=== PATIENT | female | born 1955 | race Caucasian/White ===

== ENCOUNTER → 2016-11-17 | Outpatient (CLI) | payer BC ==
[~2016-11-17] MED LIST: AMOX1TAB10 PO; ASPI325T32 PO; HYDR-3498 PO; METO25TA7 PO; PANT40TA4 PO; PREG50CA PO
--- NOTE | 2016-11-17 12:22 | RADRPT ---
PROCEDURE: XR left knee. CLINICAL INDICATION: Knee pain TECHNIQUE: AP weightbearing, PA weightbearing, lateral weightbearing and sunrise views are availab le for review. COMPARISON: None available FINDINGS: There is mild to moderate osteoarthrosis involving the medial tibial femoral compartment and mild os teoarthrosis involving the patellofemoral compartment. This is associated with joint space narrowing , subchondral sclerosis and osteophytosis. There is otherwise normal mineralization, architecture and alignment. No fractures are identified. No osseous lesions are identified. The soft tissues are unremarkable. IMPRESSION: Mild to moderate osteoarthrosis involving the medial tibial femoral compartment and mild osteoarthro sis involving the patellofemoral compartment. RPTAT: HGDB .Shaji Farmer MD, MD Date Time Electronically viewed and signed by .Shaji Farmer MD, on 11/17/2016 12:21 .B/
--- NOTE | 2016-11-20 16:58 | RADRPT ---
PROCEDURE: Limited x-ray of both lower extremities. CLINICAL INDICATION: Bilateral leg pain. TECHNIQUE: Single frontal view of both lower extremities was obtained from the hips to the calves. COMPARISON: None. FINDINGS: This is a limited study due to patient motion. There are mild degenerative changes of both knees. The hips are grossly normal. IMPRESSION: 1. Mild degenerative changes of both knees. RPTAT: QQ .Erasto Jain MD, MD Date Time Electronically viewed and signed by .Erasto Jain MD, on 11/20/2016 16:58 .R/
== END | disposition home or self-care (01) ==
LOC: HKI 09:43
PROVIDERS: ATTEND Orthopaedic Surgery
DX: M25.562 Pain in left knee (principal); M17.12 Unilateral primary osteoarthritis, left knee
CPT/HCPCS: 73564; 77073; G0463

== ENCOUNTER 2016-11-21 07:39 | Inpatient (IN) | payer BC ==
[2016-11-20 12:02] VITALS: BMI 30.0
[2016-11-21] VITALS (33 sets, daily range): BP systolic 134–175; BP diastolic 67–87; PULSE 52–96; RESP 9–32; Ht 159.4 cm; Wt 83.2 kg
[~2016-11-21] VITALS: Ht 159.4 cm; Wt 83.2 kg
[~2016-11-21 07:39] MED LIST changes: -ASPI325T32 PO; -HYDR-3498 PO; -PANT40TA4 PO; -PREG50CA PO
--- NOTE | 2016-11-21 07:52 | PREOPHP ---
DATE OF ADMISSION: 11/21/2016 TYPE OF REPORT: Preop medical clearance. HISTORY: This is a 61-year-old female who has advanced osteoarthritis of the left knee. She is maciel eduled to have left total knee replacement at [facility] by Dr. Holman on 11/22/19 17. PAST MEDICAL HISTORY: History of SVT, status postmenopausal syndrome. She had pneumonia about 2007 , intrinsic asthma diagnosed in 06/2014. PAST SURGICAL HISTORY: She has had a left knee torn meniscus repair by Dr. Andrea Oscar on 01/02/2013. sections x 2. Ovarian wedge resection bilaterally when she was in her teens. She had a pa rtial hysterectomy in 1989 and then had a bilateral salpingo-oophorectomy back in 04/1999. In 1991, she had a bunionectomy. SOCIAL HISTORY: She is and has 2 children who are grown. She is a social drinker, no use o f tobacco. REVIEW OF SYSTEMS: Negative. Of note, she did see Dr. Manriquez for preoperative clearance in that she has history of SVT and she henry s had some arrhythmia issues and essentially of note is that the patient cannot tolerate Bystolic du e to low heart rate and control of her blood pressure. She could not tolerate Cardizem and he sugge sted a weight loss program, decreased salt and being placed on Toprol XL 25 mg a day. That seems to be working. On EKG, it showed questionable inferior wall myocardial infarction and she had a stress test which was done on 11/09/2016, a nuclear stress test basically completely normal. Clinic respo nse is nonischemic. EKG was not ischemic. Basically a normal nuclear study. This was done by Dr. Manriquez. MEDICATIONS: Basically: 1. Metoprolol XL 25 mg a day. 2. Albuterol on as-needed basis. These are her only medications at the present time. FAMILY HISTORY: Noncontributory. PHYSICAL EXAMINATION: VITAL SIGNS: Blood pressure 140/80, weight 183 pounds. She is 5 feet 5 inches. Her BMI is 30.4. Her heart rate is 60. HEENT: Throat is clear. NECK: Supple, no carotid bruits, no thyromegaly, no adenopathy. LUNGS: Clear to percussion and auscultation. HEART: Regular rhythm, no murmurs, rubs, or gallops. ABDOMEN: Soft and nontender, no hepatosplenomegaly. EXTREMITIES: Without cyanosis, clubbing, or edema. NEUROLOGICAL: Intact. Awake, alert and oriented x4. FINAL IMPRESSION: Advanced osteoarthritis of the left knee. PLAN: The patient is scheduled to have a left total knee replacement by Dr. Holman on 11/21/2016. The patient is in my opinion medically cleared for surgery assuming the chest x-ray and lab work are normal. As mention, she is already cleared for cardiac as she had a normal nuclear stress test on 11/09/[address] Fred Yi MD dictating Pre-Operative for Dr. Destin Holman MD Dictated By: DESTIN HOLMAN MD EZ/NTS Conf#: [id number] DID#: [id number]
[2016-11-21] MEDS ORDERED: CELECOXIB 400 MG PO X1 DOSE PO ONE (08:00)
[2016-11-21] MEDS ORDERED: ONDANSETRON 4 MG INJ IV ONE (08:00)
[2016-11-21] MEDS ORDERED: CEFAZOLIN 2GM/50 ML (PMX) 50 ML X1 BEFORE INCISION IVPB ONE (08:00)
[2016-11-21] MEDS ORDERED: oxyCODONE (CR) 10 MG TAB [oxyCONTIN] X1 DOSE PO ONE (08:00)
[2016-11-21] MEDS ORDERED: PREGABALIN 300 MG PO X1 PO ONE (08:00)
[2016-11-21] MEDS ORDERED: PAIN COCKTAIL-CEFUROXIME IRR ONE ×7 (08:00)
[2016-11-21] MEDS ORDERED: traMADOL 50 MG TAB X 1 DOSE PO ONE (08:00)
[2016-11-21] MEDS ORDERED: TRANEXAMIC ACID in SOD CHLORIDE 0.9% 100 ML FOR INTRAOP IVPB ONE (08:00)
[2016-11-21] MEDS ORDERED: LACTATED RINGER'S 1,000 ML IV SCH (08:00)
[2016-11-21] MEDS ORDERED: TRANEXAMIC ACID in SOD CHLORIDE 0.9% 100 ML ON CALL TO OR IV ONE (08:00)
[2016-11-21] MEDS ORDERED: NEOSTIGMINE 3 MG/3 ML SYRINGE ONE (08:29)
[2016-11-21] MEDS ORDERED: PROPOFOL 20 ML ONE (08:29)
[2016-11-21] MEDS ORDERED: MIDAZOLAM 1 MG/ML 2 ML INJ ONE (08:30)
[2016-11-21] MEDS ORDERED: ONDANSETRON 4 MG INJ ONE (08:30)
[2016-11-21] MEDS ORDERED: ROCURONIUM 50 MG INJ ONE (08:30)
[2016-11-21] MEDS ORDERED: FENTAnyl 50 MCG/ML VIAL ONE (08:30)
[2016-11-21] MEDS ORDERED: CEFAZOLIN 1 GM INJ ONE (08:30)
[2016-11-21] MEDS ORDERED: DEXAMETHASONE 4 MG/ML 1 ML INJ ONE (08:30)
[2016-11-21] MEDS ORDERED: ETOMIDATE 20 MG INJ ONE (08:30)
[2016-11-21] MEDS ORDERED: GLYCOPYRROLATE 0.4 MG INJ ONE (08:30)
[2016-11-21] MEDS ORDERED: PROPOFOL 100 ML ONE (08:30)
[2016-11-21] MEDS ORDERED: EXPAREL NOTE (BUPIVICAINE LIPOSOMAL) XX SCH (10:00)
[2016-11-21] MEDS ORDERED: BUPIVACAINE LIPOSOME/PF 266 MG/20 ML VIAL INFIL ONE (10:00)
--- NOTE | 2016-11-21 10:02 | HPN ---
Date/Time of Note Date/Time of Note DATE: 11/21/16 TIME: 10:02 Interval H&P Admission Note Pt. seen H&P reviewed: No system changes No change from H&P on 11/14/16 by DESTIN Pruitt MD Nov 21, 2016 10:02
[2016-11-21] MEDS ORDERED: BACITRACIN 50000 UNITS INJ ONE ×2 (10:10→10:15)
[2016-11-21] MEDS ORDERED: VANCOMYCIN 1 GM INJ ONE (10:12)
[2016-11-21] MEDS ORDERED: POLYMYXIN B 500000 UNIT INJ ONE (10:12)
[2016-11-21] MEDS ORDERED: SODIUM CL BACTERIOSTATIC 30 ML INJ ONE (10:12)
[2016-11-21] MEDS ORDERED: SUGAMMADEX SODIUM 200 MG/2 ML VIAL IV ONE (12:21)
[2016-11-21] MEDS ORDERED: MEPERIDINE 25 MG INJ IV PRN (12:30)
[2016-11-21] MEDS ORDERED: DIPHENHYDRAMINE 50 MG INJ IV PRN (12:30)
[2016-11-21] MEDS ORDERED: hydrALAzine 20 MG INJ IV PRN (12:30)
[2016-11-21] MEDS ORDERED: FENTAnyl 50 MCG/ML VIAL IV PRN ×3 (12:30)
[2016-11-21] MEDS ORDERED: ONDANSETRON 4 MG INJ IV PRN ×2 (12:30→13:00)
[2016-11-21] MEDS ORDERED: OXYCODONE/ACETAMINOPHEN (5/325) TAB PO PRN ×2 (12:30)
[2016-11-21] MEDS ORDERED: MIDAZOLAM 1 MG/ML 2 ML INJ IV PRN (12:30)
[2016-11-21] MEDS ORDERED: LABETALOL HCL 20MG INJ IV PRN (12:30)
[2016-11-21] MEDS ORDERED: EPHEDrine SULFATE 50 MG/5 ML SYG IV PRN (12:30)
[2016-11-21] MEDS ORDERED: HYDROmorphONE (0.2 MG/ML) 10ML SYG IV PRN ×3 (12:30)
[2016-11-21] MEDS ORDERED: TRIMETHOBENZAMIDE 100 MG/ML VIAL IM PRN (12:30)
[2016-11-21] MEDS: LACTATED RINGER'S 1,000 ML IV SCH ×2 (12:54→20:43)
--- NOTE | 2016-11-21 12:58 | OPR ---
Date/Time of Note Date/Time of Note DATE: 11/21/16 TIME: 12:57 Operative Report Free Text/Dictation # [id number] Procedure Date: Nov 21, 2016 Preoperative Diagnosis Left Knee OA Postoperative Diagnosis Same Operation Performed Left TKA Surgeon: DESTIN HOLMAN MD resident programs assistant: FE HUBBARD PA-C Anesthesia: general, spinal Anesthesiologist: Valentin Walker M.D. Tourniquet Time: 62 minutes Estimated Blood Loss: 50 - 100 ml's Specimens Bone and soft tissue Tubes/Drains Hemovac x 1 Complications: None Pt Condition Post Procedure: stable Disposition: PACU DESTIN HOLMAN MD Nov 21, 2016 12:58
[2016-11-21] MEDS ORDERED: HYDROmorphONE 1 MG/ML SYG IV PRN (13:00)
[2016-11-21] MEDS ORDERED: MAGNESIUM HYDROXIDE 30ML CUP PO PRN (13:00)
[2016-11-21] MEDS ORDERED: BISACODYL 10 MG SUPP PR PRN (13:00)
[2016-11-21] MEDS ORDERED: DIPHENHYDRAMINE 25 MG CAP PO PRN (13:00)
[2016-11-21] MEDS ORDERED: NA PHOSPHATE/BIPHOS 133 ML ENEMA PR PRN (13:00)
[2016-11-21] MEDS ORDERED: NACL 0.9% 3 ML SYG IV SCH (13:00)
[2016-11-21] MEDS ORDERED: ASPIRIN (EC) 325 MG TAB PO ONE (13:00)
--- NOTE | 2016-11-21 13:23 | OPR ---
DATE OF OPERATION: 11/21/2016 PREOPERATIVE DIAGNOSIS: Left knee osteoarthritis. POSTOPERATIVE DIAGNOSIS: Left knee osteoarthritis. OPERATION PERFORMED: Left total knee arthroplasty. SURGEON: Destin Perez MD SUPERINTENDENT RADIO COMMUNICATIONS: JEN Royal COMPONENTS USED: DePuy Attune size 5 femoral component, size 5 tibial baseplate, 5 mm polyethylene insert, and a 35 patellar button. ANESTHESIA: Spinal plus general endotracheal intubation plus periarticular injection. ANESTHESIOLOGIST: Dr. Walker. TOURNIQUET TIME: 62 minutes. ESTIMATED BLOOD LOSS: 50 mL. INTRAVENOUS FLUIDS: Two liters crystalloid. SPECIMENS: Bone and soft tissue. DRAINS: Hemovac x1. COMPLICATIONS: None. DISPOSITION: Patient tolerated the procedure well and was taken to the recovery room in [facility]. INDICATIONS: The patient is a 61-year-old woman who has had progressive worsening pain in the left knee with radiographic evidence of osteoarthritis. She has failed nonsurgical means of treatment to control her pain including activity modifications, pain medications and ambulatory assist devices. Despite these measures, she has had worsening pain and I felt she would benefit from a total knee a rthroplasty. The risks, benefits, and alternatives of the procedure were explained in detail to the patient. I e xplained the risks of the surgery to include but not be limited to, bleeding and possible need for b lood transfusion; infection; pain; stiffness; neurovascular injury with possible numbness, weakness, and/or paralysis anywhere from the knee down to the toes; fracture; instability; dislocation; wear and/or loosening of the prosthesis and possible need for future revision; blood clots; pulmonary emb olism; and anesthetic complications such as heart attack, stroke, GI bleed, pneumonia, and/or . Ample time was allowed for the patient to ask questions, all of which were addressed and answered. The patient understood the risks involved and wished to proceed. Informed consent was signed prior to the procedure. PROCEDURE: The patient's left knee was initialed with a marking pen in the preoperative area to delilah ntify the correct operative site. The patient was brought to the operating room and transferred fro [facility] to the operating table where a spinal anesthetic was administered. The patien t was then anesthetized and intubated. A Vera catheter was placed. A timeout was performed to con firm that the left leg was the correct operative site. The patient was given 2 g of Ancef within on e hour prior to the procedure. A tourniquet was placed on the operative proximal thigh. The operat najma knee and lower extremity were prepped and draped in the usual sterile fashion. The operative lo wer extremity was elevated and exsanguinated with an Esmarch tourniquet. The proximal thigh tourniq uet was inflated to 300 mmHg. The knee was flexed. A midline incision was made and carried down through the subcutaneous tissue a nd fat with sharp dissection. Limited medial and lateral flaps were raised. A median parapatellar arthrotomy approach was performed. Synovial fluid was normal in color and consistency. The patella was everted and the knee flexed. There were severe tricompartmental osteoarthritic changes noted. A medial release was performed at the joint line to the midcoronal plane. The ACL and PCL and remnan ts of the menisci were excised. The stepped drill was used to open up the femoral canal which was i rrigated and sucked dry. The intramedullary guide coco was passed up the femur, and the distal cutti ng block was pinned into place for a 5 degree valgus cut, taking 10 mm of bone off distally. The osc illating saw was used to make the cut. The tibia was subluxed anteriorly. The tibial cutoff jig was placed over the center of the talus di stally and over the junction of the medial and middle third of the tibial tubercle proximally. The g uide was pinned into place and the oscillating saw was used to make the cut. The tibia was sized. The extension gap was checked and accommodated a 5 mm spacer block with the knee in full extension. There was no varus or valgus instability. At this point, the femur was sized with the posterior referencing guide. Two holes were drilled in 3 degrees of external rotation. The two holes were in line with the transepicondylar axis, perpendi cular to [place]'s line, and in line with the tibial cutoff jig brought up with the knee flexed 90 degrees and tensed with 2 lamina spreaders, suggesting the femoral rotation was correct. The four- in-one cutting block was pinned into place. The anterior and posterior cuts and chamfer cuts were m jose f with the oscillating saw. The flexion gap was checked and accommodated the 5 mm spacer block at 90 degrees. There was no varus or valgus instability, suggesting the flexion and extension gaps we re now equal. The central box was cut out on the femur. The tibia was drilled and punched in proper rotation. Tri al components were placed into position with a trial insert. The patella was cut from 24 mm down to 15 mm and sized. Three holes were drilled and the trial button placed in position. With all the t rials now in place, the knee was taken through range of motion and came to full extension as evidenc ed by the fact that with the foot on my abdomen and axial loading, there was no tendency for the kne e to flex. The knee was able to be flexed to 125 degrees with good patellar tracking with no latera l tilt or subluxation. At this point, I was satisfied with the overall range of motion, stability, and patellar tracking. The trials were removed. The real components were opened. Two bags of cement were mixed, one with and one without premixed antibiotic. The knee was irrigated with antibiotic saline and sucked dry. Once the cement was in a doughy stage, the real components were cemented into place. The knee was held in full extension, and the patellar component was held with a patellar clamp. All excess cemen t was removed with curettes. As the cement was hardening, the synovial/capsular layer was infiltrat ed with a mixture of 150 mg of 0.5% Bupivacaine, 8 mg of Duramorph, 300 mcg of epinephrine, 30 mg of Toradol, 100 mcg of clonidine, 750 mg of cefuroxime and 86 mL of normal saline, followed by an inje ction of 266 mg of liposomal Bupivacaine. A Hemovac drain was placed in the deep portion of the wound and brought out the anterolateral thigh. Once the cement was completely hardened, the trial liner was removed, and the real insert was open ed. The tourniquet was let down, and there was good hemostasis. The knee was then irrigated with a mixture of betadine/saline and then antibiotic saline with pulsatile lavage. The real insert was impacted into the tibia and reduced onto to the femur. The arthrotomy was closed with a few interrupted #1 Ethibond in a [id number] fashion, and then closed in a watertight fashion with a running #2 Stratafix suture. Knee flexion was checked against gravity and came to 125 degrees. The subcutaneous layer was irrigated and closed with 2-0 Statafix , and then 3-0 Vicryl and then ramya on the skin. The wound was covered with an occlusive dressin g, and secured with cast padding and a bias dressing. The drain was secured with 3-0 nylon. The sponge and needle counts were correct at the end of the case. The patient was then awakened, ex tubated, and taken to the recovery room in stable condition. Dictated By: DESTIN CARPENTER/BRYSON Conf#: [id number] DID#: [id number]
[2016-11-21] MEDS: CEFAZOLIN 2 GM/50 ML (PMX) 50 ML IVPB SCH ×2 (13:29→20:47)
--- NOTE | 2016-11-21 13:34 | PN ---
Date/Time of Note Date/Time of Note DATE: 11/21/16 TIME: 13:33 Assessment/Plan Lines/Catheters IV Catheter Type (from Nrsg): Peripheral IV Assessment/Plan Assessment/Plan Stable in PACU, s/p left TKA -continue Ancef -pain meds as needed -ASA/SCDs -OOB with PT -check AM labs -monitor drain -d/c muller in AM XR of the left knee is pending at this time Subjective 24 Hr Interval Summary Stable in PACU. Denies pain. Moving all extremities. Exam/Review of Systems Vital Signs Vitals Vital Signs Date Time Temp Pulse Resp B/P Pulse Ox O2 Delivery O2 Flow Rate FiO2 11/21/16 13:12 68 10 146/75 97 Nasal Cannula 3.0 11/21/16 13:04 98.4 Exam Free Text/Dictation Hemovac: minimal Dressing dry Incision clean, dry, and intact without redness or drainage Thigh soft 5/5 Quadriceps, Tibialis Anterior, EHL, Gastroc, Soleus, Peroneals Normal sensation Palpable DT/PT, CR <2 sec No distal edema FE HUBBARD PA-C Nov 21, 2016 13:34
[2016-11-21 14:01] LABS: HEMATOCRIT 38.6 % (37.0-47.0)
--- NOTE | 2016-11-21 14:01 | CONS ---
DATE OF ADMISSION: 11/21/2016 DATE OF CONSULTATION: TYPE OF CONSULTATION: Postop medical. REFERRING PHYSICIAN: Dr. Perez. Thank you very much for allowing me to evaluate this 61-year-old female who just underwent left knee replacement. HISTORICAL EVENTS: As you well know, this patient has had progressive disabling pain involving her left knee, and for this, underwent the above-mentioned surgery. In recovery, she is comfortable wit hout cough, wheezing, shortness of breath, nausea, vomiting, or abdominal pain. PAST MEDICAL HISTORY: Includes: 1. A torn left knee meniscus, undergoing surgery in 12/2012. 2. C-sections x2. 3. History or ovarian wedge resection bilaterally in her teens. 4. Partial hysterectomy and bilateral salpingo-oophorectomy. 5. Bunionectomy 6. History of SVT, pneumonia and intrinsic asthma. SOCIAL HISTORY: She is and has 2 children. Social drinker. Nuclear stress test study done in November of 2006 that was normal. MEDICATIONS: 1. Metoprolol XL 25. 2. Albuterol p.r.n. FAMILY HISTORY: Noncontributory. PHYSICAL EXAMINATION: GENERAL: [place] female in no acute distress. VITAL SIGNS: BP 122/80, pulse 70, respirations are 20, she was afebrile. EYES: Extraocular muscles were full. NOSE, MOUTH, AND THROAT: Normal. NECK: Supple. There was no jugular venous distention, thyroid enlargement or adenopathy. Carotids 2+. LUNGS: Clear. HEART: Rhythm regular, no murmur. No third or fourth sound. ABDOMEN: Nontender. Liver and spleen were not palpable. No masses or tenderness were noted. EXTREMITIES: No edema. NEUROLOGIC: No lateralizing motor weakness. IMPRESSION: 1. Stable postop left knee replacement. 2. History of supraventricular tachycardia. Will observe for the same. 3. History of asthma. We will use albuterol as needed. 4. Will evaluate daily for signs and symptoms of thromboembolic disease despite appropriate deep ve nous thrombosis prophylaxis. Dictated By: JONY MULLEN/BRYSON Conf#: [id number] DID#: [id number]
[2016-11-21 14:22] LABS: CALCIUM 9.1 mg/dl (8.4-10.2); CREATININE 0.73 mg/dl (0.44-1.00); POTASSIUM 3.9 mmol/L (3.5-5.1)
--- NOTE | 2016-11-21 14:37 | RADRPT ---
PROCEDURE: Left knee x-ray CLINICAL INDICATION: PACU Post Op TECHNIQUE: Two views of the left knee were obtained. COMPARISON: Left knee 11/20/2016. FINDINGS: The patient is status post total knee replacement . There are postsurgical changes in the subcutane ous soft tissues. There is a surgical drain in place. There is normal mineralization. No acute fracture or dislocation is seen. There is a joint space e ffusion. IMPRESSION: 1. Postsurgical changes of the knee status post knee replacement. 2. Joint space effusion is noted. RPTAT:AAJJ Physician Tricia Date Time Electronically viewed and signed by Physician Tricia on 11/21/2016 14:37 /
[2016-11-21] MEDS ORDERED: TRANEXAMIC ACID 830 MG in SOD CHLORIDE 0.9% 100 ML IVPB ONE ×2 (16:00→19:00)
[2016-11-21] MEDS: traMADol 50 MG TAB PO SCH ×2 (18:21→23:35)
[2016-11-21] MEDS: PANTOPRAZOLE (EC) 40 MG TAB PO SCH (18:21)
[2016-11-21] MEDS: DOCUSATE SODIUM 100 MG CAP PO SCH (20:43)
[2016-11-21] MEDS: PREGABALIN 50 MG CAP PO SCH (20:43)
[2016-11-21] MEDS: HYDROCODONE/APAP (5/325) TAB PO PRN (20:43)
[2016-11-21] MEDS: METOPROLOL (XL) 25 MG TAB PO SCH (21:50)
[2016-11-22 00:22] VITALS: BP 117/63; RESP 18
[2016-11-22] MEDS: HYDROCODONE/APAP (5/325) TAB PO PRN ×4 (03:22→18:50)
[2016-11-22] MEDS: PANTOPRAZOLE (EC) 40 MG TAB PO SCH ×2 (05:16→17:27)
[2016-11-22] MEDS: traMADol 50 MG TAB PO SCH ×3 (05:17→17:27)
[2016-11-22] MEDS: CEFAZOLIN 2 GM/50 ML (PMX) 50 ML IVPB SCH (05:17)
[2016-11-22] MEDS: LACTATED RINGER'S 1,000 ML IV SCH ×3 (05:17→20:54)
[2016-11-22 06:33] LABS: HEMATOCRIT 36.3 % (37.0-47.0); HEMOGLOBIN 12.1 g/dl (12.0-16.0)
[2016-11-22 07:06] LABS: CALCIUM 9.2 mg/dl (8.4-10.2); CREATININE 0.74 mg/dl (0.44-1.00); POTASSIUM 4.5 mmol/L (3.5-5.1)
[2016-11-22 07:17] VITALS: BP 120/63; RESP 19
--- NOTE | 2016-11-22 08:15 | CONS ---
Date/Time of Note Date/Time of Note DATE: 11/22/16 TIME: 08:13 Assessment/Plan Assessment/Plan Additional Assessment/Plan 1.Doing well post op left knee replacement. 2.Hx SVT, asx 3.Hx asthma, asx 4.Labs rev Consultation Date/Type/Reason Admit Date/Time Nov 21, 2016 at 07:39 Initial Consult Date Detailed Summary Respiratory: No cough, No shortness of breath Cardiovascular: No chest pain Gastrointestinal: no complaints Genitourinary: other (muller in place) Musculoskeletal: bone/joint pain (mild left knee pain) Exam/Review of Systems Vital Signs Vitals Vital Signs Date Time Temp Pulse Resp B/P Pulse Ox O2 Delivery O2 Flow Rate FiO2 11/22/16 07:17 97.5 52 19 120/63 100 11/21/16 20:10 Nasal Cannula 2.0 Intake and Output 11/21/16 11/21/16 11/22/16 15:00 23:00 07:00 Intake Total 2500 ml 716.6 ml 800 ml Output Total 1190 ml 460 ml 2500 ml Balance 1310 ml 256.6 ml -1700 ml Exam Neck: No jvd Respiratory: clear to auscultation Cardiovascular: regular rate and rhythm Gastrointestinal: soft Extremities: No edema (and no calf tend) Results Result Diagram: 11/22/16 0450 11/22/16 0450 Results 24 hrs Laboratory Tests Test 11/21/16 13:50 11/22/16 04:50 Hemoglobin 13.0 12.1 Hematocrit 38.6 36.3 L Sodium Level 144 142 Potassium Level 3.9 4.5 Chloride Level 112 H 108 Carbon Dioxide Level 24 26 Anion Gap 12 13 Blood Urea Nitrogen 20 15 Creatinine 0.73 0.74 Glucose Level 138 128 Calcium Level 9.1 9.2 Medications Medications Current Medications Miscellaneous Information 1 ea 1 ea NOTE XX ; Start 11/21/16 at 10:00; Stop at 09:59 Lactated Ringer's (Lr) 1,000 ml @ 125 mls/hr Q8H IV Last administered on 05:17; Admin Dose 125 MLS/HR; Start 11/21/16 at 12:54 Tramadol HCl (Ultram) 50 mg Q6 PO Last administered on 11/22/16 05:17; Admin Dose 50 MG; Start 11/21/16 at 18:00; Stop 11/24/16 at 17:59 Acetaminophen/ Hydrocodone Bitart ([place] (5/325)) 1 tab Q4H PRN PO PAIN LEVEL 1 -3; Start 11/21/16 at 13:00 Acetaminophen/ Hydrocodone Bitart ([place] (5/325)) 2 tab Q4H PRN PO PAIN LEVEL 4 -7 Last administered on 11/22/16 03:22; Admin Dose 2 TAB; Start 11/21/16 at 13: 00 Hydromorphone HCl (Dilaudid) 1 mg Q3H PRN IV PAIN LEVEL 8-10 Last administered on 11/21/16 16:05; Admin Dose 1 MG; Start 11/21/16 at 13:00 Ondansetron HCl (Zofran Inj) 4 mg Q6H PRN IV NAUSEA AND/OR VOMITING; Start at 13:00 Bisacodyl (Dulcolax Supp) 10 mg Q12H PRN [place] CONSTIPATION; Start 11/21/16 at 13: 00 Magnesium Hydroxide (Milk Of Mag) 30 ml BID PRN PO CONSTIPATION; Start at 13:00 Sodium Biphosphate/ Sodium Phosphate (Fleet Enema) 133 ml DAILY PRN [place] CONSTIPATION; Start 11/21/16 at 13:00 Docusate Sodium (Colace) 100 mg BID PO Last administered on 11/21/16 20:43; Admin Dose 100 MG; Start 11/21/16 at 21:00 Diphenhydramine HCl (Benadryl) 25 mg Q6H PRN PO PRURITUS; Start 11/21/16 at 13: 00 Aspirin (Ecotrin) 325 mg BID PO ; Start 11/22/16 at 09:00 Pantoprazole (Protonix Tab) 40 mg BID@06,18 PO Last administered on 11/22/16 05:16; Admin Dose 40 MG; Start 11/21/16 at 18:00 Pregabalin (Lyrica) 50 mg BID PO Last administered on 11/21/16 20:43; Admin Dose 50 MG; Start 11/21/16 at 21:00 Metoprolol Succinate (Toprol Xl) 25 mg HS PO Last administered on 11/21/16 21: 50; Admin Dose 25 MG; Start 11/21/16 at 21:35 JONY CHAPARRO MD Nov 22, 2016 08:15
[2016-11-22] MEDS: DOCUSATE SODIUM 100 MG CAP PO SCH ×2 (08:20→21:49)
[2016-11-22] MEDS: ASPIRIN (EC) 325 MG TAB PO SCH ×2 (08:20→21:48)
[2016-11-22] MEDS: PREGABALIN 50 MG CAP PO SCH ×2 (08:20→21:48)
--- NOTE | 2016-11-22 08:48 | PN ---
Date/Time of Note Date/Time of Note DATE: 11/22/16 TIME: 08:47 Assessment/Plan Lines/Catheters IV Catheter Type (from Nrsg): Peripheral IV Vera in Place (from Nrsg): Yes Assessment/Plan Assessment/Plan Stable POD #1, s/p left TKA -d/c abx -pain meds as needed -ASA/SCDs -OOB with PT -check AM labs -drain removed -d/c planning. Will plan to go home upon discharge Subjective 24 Hr Interval Summary No acute overnight events. Denies significant pain. Did not start PT yet. VSS, afebrile. Will plan to go home upon discharge. Exam/Review of Systems Vital Signs Vitals Vital Signs Date Time Temp Pulse Resp B/P Pulse Ox O2 Delivery O2 Flow Rate FiO2 11/22/16 07:17 97.5 52 19 120/63 100 11/21/16 20:10 Nasal Cannula 2.0 Intake and Output 11/21/16 11/21/16 11/22/16 15:00 23:00 07:00 Intake Total 2500 ml 716.6 ml 800 ml Output Total 1190 ml 460 ml 2500 ml Balance 1310 ml 256.6 ml -1700 ml Exam Free Text/Dictation Hemovac: 100cc Dressing dry Incision clean, dry, and intact without redness or drainage Thigh soft 5/5 Quadriceps, Tibialis Anterior, EHL, Gastroc, Soleus, Peroneals Normal sensation Palpable DT/PT, CR <2 sec No distal edema Results Result Diagram: 11/22/1644911/22/16 045 FE HUBBARD PA-C Nov 22, 2016 08:48
[2016-11-22] MEDS ORDERED: METOPROLOL (XL) 25 MG TAB PO SCH (09:00)
[2016-11-22 10:01] LABS: ADD UMIC YES; URINE BILIRUBIN (Dip) NEGATIVE (NEGATIVE); URINE BLOOD (Dip) TRACE (NEGATIVE); URINE COLOR LT. YELLOW (YELLOW); URINE GLUCOSE (Dip) NEGATIVE (NEGATIVE); URINE KETONES (Dip) NEGATIVE (NEGATIVE); URINE LEUKOCYTE ESTERASE (Dip) NEGATIVE (NEGATIVE); URINE NITRITE (Dip) NEGATIVE (NEGATIVE); URINE TOTAL PROTEIN (Dip) NEGATIVE (NEGATIVE); URINE UROBILINOGEN (Dip) 0.2 E.U./dL (0.1-1.0)
[2016-11-22 10:06] LABS: URINE RBCS NONE SEEN /HPF (0)
--- NOTE | 2016-11-22 15:01 | PDOCDIS ---
Discharge Instructions DIAGNOSIS Discharge Diagnosis: s/p left TKA CONDITION Patient Condition: Good HOME CARE INSTRUCTIONS: Diet Instructions: Regular ACTIVITY: Activity Restrictions: Slowly Increase Activity Rest between Activity Avoid heavy lifting Do not operate Machinery Do not operate Power Tool Avoid Heavy Housework Keep Limb Elevated Bathing Restrictions: Shower FOLLOW UP/APPOINTMENTS Appointments follow up in the office on 12/01/16 OTHER ORDERS: Other Orders: S/P TKA Physical Therapy: Three times per week at home x 2 weeks Daily in Rehab/SNF WB STATUS: WBAT 1. Strengthening exercises for both upper and un-operated lower extremities. 2. Gait training with front wheeled walker 3. Active range of motion exercises to operative knee. 4. When not working on knee range of motion exercises, distal towel roll under operative ankle/distal calf to promote full extension. 5. DO NOT PUT ANYTHING BEHIND OPERATIVE KNEE!!! 6. Quadriceps and hamstring strengthening. 7. May switch to cane in contra lateral hand 6 weeks after surgery. 8. Physical Therapy can open case if nursing is not available. 9. Use Ice Machine as instructed from date of surgery while at rest 3X/day. 10. Patient requires mobile SCDs to reduce risk of developing DVT following TKA. Patient will use the mobile SCDs for 30 days postoperatively. Bathing assistance by home health aide twice weekly if Medicare patient. Occupational Therapy: Evaluation for assistive devices and ADL training. Wound Care: Keep incision dry & covered with Tegaderm until first visit with Dr. Perez Anticoagulation Orders: Enteric Coated Aspirin 325 mg po bid x 6 weeks from date of surgery Follow-up:Call for an appointment with Dr. Perez in 1 week after discharged from hospital at DME Orders: ALEX, 3-in-1 Commode, Polar ice machine, Mobile SCDs FE HUBBARD PA-C Nov 22, 2016 15:01
[2016-11-22] MEDS ORDERED: PANT40TA4 PO (15:08)
[2016-11-22] MEDS ORDERED: ASPI325T32 PO (15:08)
[2016-11-22] MEDS ORDERED: HYDR-3498 PO (15:08)
[2016-11-22] MEDS ORDERED: PREG50CA PO (15:08)
[2016-11-22 21:19] VITALS: BP 141/70; RESP 18
[2016-11-22] MEDS: METOPROLOL (XL) 25 MG TAB PO SCH (21:49)
[2016-11-23] MEDS: traMADol 50 MG TAB PO SCH ×3 (00:15→13:35)
[2016-11-23] MEDS: HYDROCODONE/APAP (5/325) TAB PO PRN ×4 (01:10→10:53)
[2016-11-23] MEDS: LACTATED RINGER'S 1,000 ML IV SCH (04:54)
[2016-11-23 05:17] LABS: HEMATOCRIT 32.2 % (37.0-47.0); HEMOGLOBIN 10.7 g/dl (12.0-16.0)
[2016-11-23] MEDS: PANTOPRAZOLE (EC) 40 MG TAB PO SCH (05:43)
[2016-11-23 06:00] LABS: CALCIUM 8.7 mg/dl (8.4-10.2); CREATININE 0.97 mg/dl (0.44-1.00); POTASSIUM 4.1 mmol/L (3.5-5.1)
[2016-11-23 08:24] VITALS: BP 127/64; RESP 16
--- NOTE | 2016-11-23 09:02 | PN ---
Date/Time of Note Date/Time of Note DATE: 11/23/16 TIME: 09:01 Assessment/Plan Lines/Catheters IV Catheter Type (from Nrsg): Saline Lock Vera in Place (from Nrsg): No Assessment/Plan Assessment/Plan Stable POD #2, s/p left TKA -pain meds prn -ASA/SCDs -OOB with PT -dressing changed -d/c home today -follow up in the office in 1 week Subjective 24 Hr Interval Summary No acute overnight events. Having more moderate pain today. Progressing well with PT. VSS, afebrile. Would like to go home today. Exam/Review of Systems Vital Signs Vitals Vital Signs Date Time Temp Pulse Resp B/P Pulse Ox O2 Delivery O2 Flow Rate FiO2 11/23/16 08:24 97.7 45 16 127/64 97 11/21/16 20:10 Nasal Cannula 2.0 Intake and Output 11/22/16 11/22/16 11/23/16 15:00 23:00 07:00 Intake Total 500 ml 2210 ml 600 ml Output Total 1100 ml 500 ml Balance 500 ml 1110 ml 100 ml Exam Free Text/Dictation Dressing dry Incision clean, dry, and intact without redness or drainage Thigh soft 5/5 Quadriceps, Tibialis Anterior, EHL, Gastroc, Soleus, Peroneals Normal sensation Palpable DT/PT, CR <2 sec No distal edema Results Result Diagram: 11/23/16 0422 11/23/16 042 FE HUBBARD PA-C Nov 23, 2016 09:02
[2016-11-23] MEDS: ASPIRIN (EC) 325 MG TAB PO SCH (09:35)
[2016-11-23] MEDS: DOCUSATE SODIUM 100 MG CAP PO SCH (09:35)
[2016-11-23] MEDS: PREGABALIN 50 MG CAP PO SCH (09:35)
--- NOTE | 2016-11-23 11:17 | CONS ---
Date/Time of Note Date/Time of Note DATE: 11/23/16 TIME: 11:15 Assessment/Plan Assessment/Plan Additional Assessment/Plan 1. Doing well post op left knee replacement 2. Left calf is firm, want to obtain nivvs prior to dc 3. Labs rev Consultation Date/Type/Reason Admit Date/Time Nov 21, 2016 at 07:39 Detailed Summary Respiratory: No cough, No shortness of breath Cardiovascular: No chest pain Gastrointestinal: no complaints Genitourinary: no complaints Musculoskeletal: bone/joint pain (mild left knee pain and calf feels tight) Exam/Review of Systems Vital Signs Vitals Vital Signs Date Time Temp Pulse Resp B/P Pulse Ox O2 Delivery O2 Flow Rate FiO2 11/23/16 08:24 97.7 45 16 127/64 97 11/21/16 20:10 Nasal Cannula 2.0 Intake and Output 11/22/16 11/22/16 11/23/16 15:00 23:00 07:00 Intake Total 500 ml 2210 ml 600 ml Output Total 1100 ml 500 ml Balance 500 ml 1110 ml 100 ml Exam Neck: No jvd Respiratory: clear to auscultation Cardiovascular: regular rate and rhythm Extremities: No edema (and firm left calf, ? tend) Results Result Diagram: 11/23/16 0422 11/23/16 0422 Results 24 hrs Laboratory Tests Test 11/23/16 04:22 Hemoglobin 10.7 L Hematocrit 32.2 L Sodium Level 140 Potassium Level 4.1 Chloride Level 109 Carbon Dioxide Level 28 Anion Gap 7 L Blood Urea Nitrogen 23 H Creatinine 0.97 Glucose Level 84 # Calcium Level 8.7 Medications Medications Current Medications Miscellaneous Information 1 ea 1 ea NOTE XX ; Start 11/21/16 at 10:00; Stop at 09:59 Lactated Ringer's (Lr) 1,000 ml @ 125 mls/hr Q8H IV Last administered on 05:17; Admin Dose 125 MLS/HR; Start 11/21/16 at 12:54 Tramadol HCl (Ultram) 50 mg Q6 PO Last administered on 11/23/16 05:43; Admin Dose 50 MG; Start 11/21/16 at 18:00; Stop 11/24/16 at 17:59 Acetaminophen/ Hydrocodone Bitart ([place] (5/325)) 1 tab Q4H PRN PO PAIN LEVEL 1 -3 Last administered on 11/23/16 06:56; Admin Dose 1 TAB; Start 11/21/16 at 13: 00 Acetaminophen/ Hydrocodone Bitart ([place] (5/325)) 2 tab Q4H PRN PO PAIN LEVEL 4 -7 Last administered on 11/23/16 10:53; Admin Dose 2 TAB; Start 11/21/16 at 13: 00 Hydromorphone HCl (Dilaudid) 1 mg Q3H PRN IV PAIN LEVEL 8-10 Last administered on 11/21/16 16:05; Admin Dose 1 MG; Start 11/21/16 at 13:00 Ondansetron HCl (Zofran Inj) 4 mg Q6H PRN IV NAUSEA AND/OR VOMITING; Start at 13:00 Bisacodyl (Dulcolax Supp) 10 mg Q12H PRN [place] CONSTIPATION; Start 11/21/16 at 13: 00 Magnesium Hydroxide (Milk Of Mag) 30 ml BID PRN PO CONSTIPATION; Start at 13:00 Sodium Biphosphate/ Sodium Phosphate (Fleet Enema) 133 ml DAILY PRN [place] CONSTIPATION; Start 11/21/16 at 13:00 Docusate Sodium (Colace) 100 mg BID PO Last administered on 11/23/16 09:35; Admin Dose 100 MG; Start 11/21/16 at 21:00 Diphenhydramine HCl (Benadryl) 25 mg Q6H PRN PO PRURITUS; Start 11/21/16 at 13: 00 Aspirin (Ecotrin) 325 mg BID PO Last administered on 11/23/16 09:35; Admin Dose 325 MG; Start 11/22/16 at 09:00 Pantoprazole (Protonix Tab) 40 mg BID@,18 PO Last administered on 11/23/16 05:43; Admin Dose 40 MG; Start 11/21/16 at 18:00 Pregabalin (Lyrica) 50 mg BID PO Last administered on 11/23/16 09:35; Admin Dose 50 MG; Start 11/21/16 at 21:00 Metoprolol Succinate (Toprol Xl) 25 mg HS PO Last administered on 11/22/16 21: 49; Admin Dose 25 MG; Start 11/21/16 at 21:35 JONY CHAPARRO MD Nov 23, 2016 11:17
--- NOTE | 2016-11-23 12:04 | RADRPT ---
PROCEDURE: Ultrasound of the left lower extremity venous system. CLINICAL INDICATION: Left leg pain and swelling, deep venous thrombosis TECHNIQUE: Eden scale with and without compression, color doppler, spectral doppler of the venous system of the left lower extremity was performed. Venous augmentation maneuvers were utilized. COMPARISON: No prior studies are available for comparison. FINDINGS: Common femoral vein: Patent. Femoral vein: Patent. Popliteal vein: Patent. Calf veins: Patent. No soft tissue abnormalities are identified. IMPRESSION: No evidence of a deep vein thrombosis within the left lower extremity. RPTAT: AADD .Abhay Caballero MD, MD Date Time Electronically viewed and signed by .Abhay Caballero MD, on 11/23/2016 12:04 .B/
== END 2016-11-23 14:53 | disposition home health service (06) | DRG 470 ==
LOC: REC 07:39 → MS1 14:13
PROVIDERS: ADMIT Orthopaedic Surgery; ATTEND Orthopaedic Surgery
PROC: 0SRD0J9 Replacement of Left Knee Joint with Synthetic Substitute, Cemented, Open Approach (ICD-10-PCS; principal; 2016-11-21 10:00)
DX: M17.12 Unilateral primary osteoarthritis, left knee (principal); I47.1 Supraventricular tachycardia; I10 Essential (primary) hypertension; J45.909 Unspecified asthma, uncomplicated; Z90.710 Acquired absence of both cervix and uterus
CPT/HCPCS: 73560; 80048; 81001; 85014; 85018; 86850; 86900; 86901; 86920; 87081; 87086; 93971; 97110; 97116; 97162; 97166; 97530; C1776; C9290; J0171; J0690; J0697; J0735; J1100; J1170; J1885; J2250; J2274; J2405; J2710; J3010; J3370; J7120

== ENCOUNTER → 2016-12-01 | Outpatient (CLI) | payer BC ==
[~2016-12-01] MED LIST changes: -AMOX1TAB10 PO; +ASPI325T32 PO; +HYDR-3498 PO; +PANT40TA4 PO; +PREG50CA PO
--- NOTE | 2016-12-01 11:20 | RADRPT ---
PROCEDURE: XR Left Knee. CLINICAL INDICATION: Left knee pain. Postop. TECHNIQUE: Two views. Frontal and lateral. COMPARISON: 11/17/2016. FINDINGS: There is no fracture or dislocation. Anterior skin ramya are noted. There is diffuse soft tissue swelling. There is a total left knee arthroplasty which appears satisfactory. There is no lytic or blastic lesion. There is no joint effusion. IMPRESSION: 1. Satisfactory postoperative appearance of the left knee. RPTAT: QQ .Erasto Jain MD, Date Time Electronically viewed and signed by .Erasto Jain MD, on 12/01/2016 11:20 .R/
--- NOTE | 2016-12-01 14:03 | HKNOTE ---
DATE OF SERVICE: 12/01/2016 INTERVAL HISTORY: The patient presents today for her first postoperative evaluation. She is 10 day s status post left total knee arthroplasty. She is doing satisfactory overall. She is having some persistent pain to the left knee. She has been taking her [place] dosing to try and manage her pain b tien. She denies any fevers or chills. She is also taking Neurontin, as her insurance did not aut horize Lyrica. She is taking aspirin twice daily for DVT prophylaxis. She is doing physical therap y with home health, but is concerned about her range of motion. She presents today for her first po stoperative evaluation. PHYSICAL EXAMINATION: Today, she is alert and oriented x4 and in no acute distress. Exam of the in cision demonstrates it to be clean, dry and intact. She is ambulating with a front wheel walker. S taples are in place. Range of motion is 0 to 45 degrees. She does have some moderate soft tissue s welling around the knee. Homans sign is negative. There is no erythema or warmth noted. Compartme nts are otherwise soft. She is neurovascularly intact distally. IMAGING: X-rays of the left knee were obtained today and reviewed by me. They demonstrate anatomic alignment with no fractures or dislocations identified. ASSESSMENT: Ten days status post left total knee arthroplasty. PLAN: The ramya were removed today and Steri-Strips were applied. She is to continue aspirin twi ce daily for DVT prophylaxis. We had a lengthy discussion with Dr. Perez regarding adjusting her p ain medication; however, we think it is best if she takes the [place] to manage her pain symptoms for now. We will see her back in 2 weeks for repeat evaluation and check her range of motion as it is s omewhat limited today. She is to call the office in the meantime if she has any concerns. Dictated By: FE LI for DESTIN ALEXANDER/BRYSON Conf#: [id number] DID#: [id number]
== END | disposition home or self-care (01) ==
LOC: HKI 09:46
PROVIDERS: ATTEND Orthopaedic Surgery
DX: Z47.1 Aftercare following joint replacement surgery (principal); Z96.652 Presence of left artificial knee joint; M25.562 Pain in left knee

== ENCOUNTER → 2016-12-15 | Outpatient (CLI) | payer BC | END | disposition home or self-care (01) | LOC: HKI 08:49 | PROVIDERS: ATTEND Orthopaedic Surgery | DX: Z47.1 Aftercare following joint replacement surgery (principal); Z96.652 Presence of left artificial knee joint ==

== ENCOUNTER → 2017-01-15 | Outpatient (CLI) | payer BC | END | disposition home or self-care (01) | LOC: HKI 08:57 | PROVIDERS: ATTEND Orthopaedic Surgery | DX: Z09 Encounter for follow-up examination after completed treatment for conditions other than malignant neoplasm (principal); Z96.652 Presence of left artificial knee joint; I10 Essential (primary) hypertension ==